=== PATIENT | male | born 1960 | race Caucasian/White ===

== ENCOUNTER → 2020-08-06 15:11 | Outpatient (BNVA) | payer OTHER, SELFPAY | PROVIDERS: Family Provider Nurse Practitioner Family; PCP Family Medicine; Visit Provider Nurse Practitioner | DX: Z20.828 Contact with and (suspected) exposure to other viral communicable diseases (principal); U07.1 COVID-19 | CPT/HCPCS: 87635 ==

== ENCOUNTER → 2021-04-20 08:16 | Outpatient (BNVA) | payer OTHER, SELFPAY | PROVIDERS: Family Provider Nurse Practitioner Family; PCP Family Medicine; Visit Provider Internal Medicine Rheumatology | DX: L40.50 Arthropathic psoriasis, unspecified (principal); L40.0 Psoriasis vulgaris; Z79.899 Other long term (current) drug therapy; Z11.59 Encounter for screening for other viral diseases; Z11.1 Encounter for screening for respiratory tuberculosis; Z71.89 Other specified counseling; Z87.891 Personal history of nicotine dependence | CPT/HCPCS: 99204 ==

== ENCOUNTER 2021-04-21 16:31 | Outpatient (CLI) | payer OTHER, SELFPAY ==
--- NOTE | 2021-04-21 16:56 | XRR_ITS ---
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 Views: 3 or more views. COMPARISON: No relevant prior studies available. FINDINGS: Bones/joints: Mild joint space narrowing of the 1st MTP. No irregular osseous erosions. Negative for fracture. Soft tissues: Normal. XR/XR foot LT min 3V* [id number] IMPRESSION: Mild joint space narrowing of the 1st MTP.
--- NOTE | 2021-04-21 16:56 | XRR_ITS ---
PROCEDURE INFORMATION: Exam: XR Right Hand Exam date and time: 04/21/2021 4:56 PM Age: 61 years old Clinical indication: Pain; Hand; Bilateral; Additional info: Z79.899 - other [facility] (current) drug therapy TECHNIQUE: Imaging protocol: XR Right hand. Views: 3 or more views. COMPARISON: No relevant prior studies available. FINDINGS: Bones/joints: No irregular osseous erosions. Negative for fracture. The joint spaces are relatively preserved. Soft tissues: Normal. XR/XR hand RT min 3V* [id number] IMPRESSION: No significant degenerative changes.
--- NOTE | 2021-04-21 16:56 | XRR_ITS ---
PROCEDURE INFORMATION: Exam: XR Right Foot Exam date and time: 04/21/2021 4:56 PM Age: 61 years old Clinical indication: Pain; Foot; Bilateral; Additional info: Z79.899 - other longterm (current) drug therapy TECHNIQUE: Imaging protocol: XR Right foot. Views: 3 or more views. COMPARISON: No relevant prior studies available. FINDINGS: Bones/joints: No regular osseous erosions. Negative for fracture. The joint spaces of the foot are preserved. Soft tissues: Normal. XR/XR foot RT min 3V* [id number] IMPRESSION: No significant degenerative changes of the right foot.
--- NOTE | 2021-04-21 16:56 | XRR_ITS ---
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 Views: 3 or more views. COMPARISON: No relevant prior studies available. FINDINGS: Bones/joints: No irregular osseous erosions. Negative for fracture. Joint spaces are relatively preserved. Soft tissues: Normal. XR/XR hand LT min 3V* [id number] IMPRESSION: No significant degenerative changes of the left hand.
--- NOTE | 2021-04-21 16:56 | XRR_ITS ---
PROCEDURE INFORMATION: Exam: XR Chest Exam date and time: 04/21/2021 4:56 PM Age: 61 years old Clinical indication: Other: Bilateral joint pain; Additional info: Z79.899 - other [facility] (current) drug therapy TECHNIQUE: Imaging protocol: XR of the chest. Views: 2 views. COMPARISON: No relevant prior studies available. FINDINGS: Lungs: Peripheral consolidation or scarring in the left upper lung. Pleural spaces: Unremarkable. No pleural effusion. No pneumothorax. Heart/Mediastinum: Unremarkable. No cardiomegaly. Bones/joints: Unremarkable. XR/XR chest 2V* [id number] IMPRESSION: Peripheral consolidation or scarring in the left upper lung.
[2021-04-21 18:10] LABS: Basophils # 0.1 10^3/uL (0.0-0.1); Basophils % 0.6 %; Eosinophils # 0.4 10^3/uL (0.0-0.8); Eosinophils % 3.2 %; Hematocrit 47.8 % (42.0-52.0); Hemoglobin 15.9 g/dL (11.7-16.6); Lymphocytes # 1.7 10^3/uL (0.8-4.8); Lymphocytes % 14.4 %; Mean Corpuscular HGB Conc 33.3 g/dL (30.0-36.0); Mean Corpuscular Hemoglobin 31.6 pg (28.0-34.0); Mean Platelet Volume 10.5 fL (7.4-10.4); Monocytes # 0.8 10^3/uL (0.2-0.9); Monocytes % 6.9 %; Neutrophils # 8.71 10^3/uL (1.8-7.7); Neutrophils % 74.6 %; Nucleated Red Blood Cells % 0 %; Platelet Count 239 10^3/cmm (130-400); Red Blood Count 5.03 10^6/uL (4.1-5.3); Red Cell Distribution Width 13.5 % (12.1-15.1); White Blood Count 11.7 10^3/uL (4.0-10.0)
[2021-04-21 20:44] LABS: 25 Hydroxy Vitamin D 54 ng/mL (30-100); Alanine Aminotransferase 27 U/L (0-41); Alkaline Phosphatase 106 IU/L (40-130); Aspartate Amino Transferase 31 U/L (0-40); C Reactive Protein 2.7 mg/L (0.0-4.9); Globulin 3.2 g/dL (1.3-4.6); Glomerular Filtration Rate 137.9 mL/min (90-130); Total Bilirubin 0.2 mg/dL (0.15-1.2); Total Protein 7.2 g/dL (6.6-8.7)
[2021-04-21 21:55] LABS: Hepatitis B Core AB, Total Non-Reactive (Nonreactive); Hepatitis B Surface Antigen Non-Reactive (Nonreactive)
[2021-04-21 22:05] LABS: Erythrocyte Sedimentation Rate 10 mm/hr (0-10)
[2021-04-21 23:47] LABS: Hepatitis C Virus Antibody Non-Reactive (Nonreactive)
[2021-04-25 13:42] LABS: Cyclic Citrullinated Peptide <16 UNITS
[2021-04-25 16:21] LABS: HLA-B27 POSITIVE (NEGATIVE)
== END 2021-04-21 16:32 | disposition home or self-care (01) ==
PROVIDERS: PCP Family Medicine; Visit Provider Internal Medicine Rheumatology
DX: L40.9 Psoriasis, unspecified (principal); M19.90 Unspecified osteoarthritis, unspecified site; M45.9 Ankylosing spondylitis of unspecified sites in spine; Z79.899 Other long term (current) drug therapy; Z11.59 Encounter for screening for other viral diseases; Z11.1 Encounter for screening for respiratory tuberculosis
CPT/HCPCS: 36415; 71046; 73130; 73630; 80076; 82306; 82565; 85025; 85651; 86140; 86480; 86704; 86803; 86812; 87340

== ENCOUNTER → 2021-05-19 11:40 | Outpatient (BNVA) | payer OTHER, SELFPAY | PROVIDERS: PCP Family Medicine; Visit Provider Surgery | DX: Z01.812 Encounter for preprocedural laboratory examination (principal); Z20.822 Contact with and (suspected) exposure to COVID-19 | CPT/HCPCS: 87635 ==

== ENCOUNTER 2021-05-24 06:29 | Day surgery (SDC) | payer OTHER, SELFPAY ==
[2021-05-19 13:12] VITALS: BMI 24.3
--- NOTE | 2021-05-24 06:43 | P.HP_ITS ---
Same Day Surgery H&P Indication for Procedure/HPI DATE OF PROCEDURE: May 24, 2021 CHIEF COMPLAINT/INDICATIONFOR SURGICAL PROCEDURE: Screening colon PREOP DIAGNOSIS: Screening colonoscopy PLANNED PROCEDRUE: Operation Date: 05/24/21 07:30 Proposed Procedures p Colonoscopy 90029 Z12.11(Not Applicable) - Thomas Brady MD 04/03/2021 This is a pleasant 61 years old gentleman referred to my practice for colonoscopy screening. Patient never had one before and denies bleeding per rectum or history of colon cancer. 05/24/2021. Patient comes today for screening colonoscopy ROS All systems have been reviewed negative all systems have been reviewed negative except as per the above or per problem list Medications/Allergies* Home Medications Medication Instructions Recorded Confirmed Type albuterol sulfate 90 mcg/actuation 2 puff INHALATION Q6H PRN 01/09/20 05/24/21 History aerosol inhaler budesonide-formoterol HFA 80 1 puff INHALATION DAILY gm 01/09/20 05/24/21 History mcg-4.5 mcg/actuation aerosol inhaler metoprolol tartrate 100 mg tablet 100 mg PO DAILY 04/03/21 05/24/21 History ibuprofen 200 mg PO PRN 05/24/21 05/24/21 History Allergies/Adverse Reactions Allergy/AdvReac Type Severity Reaction Status Date / Time No Known Allergies Allergy Verified 05/24/21 07:34 Pertinent History/Comorbid Conditions* Medical History (Updated 04/20/21 @ 10:07 by Parag Costa MD) High risk medication use Immunization counseling Plaque psoriasis Psoriatic arthritis Screen for colon cancer Family History (Updated 04/20/21 @ 09:22 by Fouzia Navarrete LPN) Lupus Lung disease Hypertension Denies family history of Rheumatoid arthritis Diabetes CAD (coronary artery disease) Psoriatic arthritis Chronic kidney disease (CKD) Psoriasis Cancer Stroke Social History Smoking and tobacco status: current every day smoker Alcohol intake: current Alcohol intake frequency: few times a month History of recent travel: No Pertinent Exam Findings alert, oriented x 3, clear to auscultation bilaterally, regular rate & rhythm and operative site marked Recommendations Surgery/Procedure today (Colonoscopy with possible biopsy ) Coding Level of Care Code Acute National Account Executive for Liset Maki
[2021-05-24 06:51] VITALS: BP 112/90; PULSE 88; RESP 18; TEMP 36.3; O2SAT 95
--- NOTE | 2021-05-24 06:52 | ANES.PREANE2 ---
Pre-Anesthetic Assessment Pre-Anesthetic Assessment: Height/Weight: Height 1.78 m Weight 77.111 kg Preop Diagnosis: Screening colonoscopy Proposed Procedure: Operation Date: 05/24/21 07:30 Proposed Procedures p Colonoscopy 93299 Z12.11(Not Applicable) - Thomas Brady MD Familial anesthetic complications: none Was Beta Molly taken within 24 hours: N/A (takes BB at night.) Last intake: 22005/22/21 meal 2030 05/23/21 liquids Social: Social History: Alcohol and Tobacco Exam: Pre-Anes Outpt Exam: alert, oriented x 3 and clear to auscultation bilaterally Airway: Submandibular: WNL Cervical ROM: WNL MP: 2 Additional comments: missing lower front tooth Pulmonary: Pulmonary: COPD CV/HEM: CV/HEM: HTN : : None reported Hepatic: Hepatic: None reported GI: GI: None reported Metabolic: Metabolic: None reported Musc/skel: Comments: psoriatic arthritis Anesthetic Plan: ASA status: 3 Anesthesia: MAC PFSH Anesthesia PFSH: Medical History (Updated 04/20/21 @ 10:07 by Parag Costa MD) High risk medication use Immunization counseling Plaque psoriasis Psoriatic arthritis Screen for colon cancer Family History (Updated 04/20/21 @ 09:22 by Fouzia Navarrete LPN) Other Hypertension Lung disease Lupus Denies family history of Rheumatoid arthritis Diabetes CAD (coronary artery disease) Psoriatic arthritis Chronic kidney disease (CKD) Psoriasis Cancer Stroke Social History (Updated 04/20/21 @ 09:23 by Fouzia Navarrete LPN) Smoking and tobacco status: current every day smoker Alcohol intake: current Alcohol intake frequency: few times a month History of recent travel: No Data Anesthesia Cardiac Studies: No Data to Display
[2021-05-24] MEDS: sodium chloride 0.9% 1,000 ML 30 ML IV (07:06)
[2021-05-24 07:52] VITALS: BP 97/76; PULSE 73; RESP 16; TEMP 36.1; O2SAT 93
[2021-05-24 08:04] VITALS: BP 96/65; PULSE 74; RESP 18; O2SAT 92
--- NOTE | 2021-05-24 08:23 | ANE.PACU2 ---
Inpatient post-anesthesia follow up: Airway intact: Yes Vital signs: Temperature 97.4 F Pulse Rate 88 Respiratory Rate 18 Blood Pressure 112/90 Pulse Oximetry 95 Oxygen Delivery Me thod Room Air Oxygen Flow Rate Fraction of Inspir ed Oxygen Hydration adequate: Yes Mental status: Baseline
== END 2021-05-24 08:52 | disposition home or self-care (01) ==
PROVIDERS: PCP Family Medicine; Visit Provider Surgery
PROC: 0DJD8ZZ Inspection of Lower Intestinal Tract, Via Natural or Artificial Opening Endoscopic (ICD-10-PCS; CPT 45330; 2021-05-24 07:30)
DX: Z12.11 Encounter for screening for malignant neoplasm of colon (principal); K57.30 Diverticulosis of large intestine without perforation or abscess without bleeding; Z82.49 Family history of ischemic heart disease and other diseases of the circulatory system; F17.210 Nicotine dependence, cigarettes, uncomplicated; J44.9 Chronic obstructive pulmonary disease, unspecified; I10 Essential (primary) hypertension
CPT/HCPCS: 45330; 96360; 96361; J2704; J7030

== ENCOUNTER 2021-06-06 09:51 | Outpatient (CLI) | payer OTHER, SELFPAY ==
--- NOTE | 2021-06-06 09:56 | FL_ITS ---
WS: [id number] Barium Enema TECHNICAL: Single contrast barium enema. FLUOROSCOPY TIME: 2.5 minutes CLINICAL INFORMATION: SIGMOID COLON STRICTURE COMPARISON: None. FINDINGS: Extensive sigmoid diverticulosis. No evidence of high-grade sigmoid stricture or obstructin g mass. Contrast normally traverses the sigmoid colon. Normal hepatic and splenic flexures. Normal il eocecal valve. No suspicious filling defects. No evidence of obstructing stricture or mass. Normal po stevacuation images. Osteopenia. Lumbar curve convex left. FL/FL barium enema [id number] IMPRESSION: 1. Sigmoid diverticulosis. No obstructing stricture. 2. Otherwise unremarkable barium enema
== END 2021-06-06 09:52 | disposition home or self-care (01) ==
LOC: RAD 09:53
PROVIDERS: PCP Family Medicine; Visit Provider Surgery
DX: K56.699 Other intestinal obstruction unspecified as to partial versus complete obstruction (principal); K57.30 Diverticulosis of large intestine without perforation or abscess without bleeding
CPT/HCPCS: 74270

== ENCOUNTER 2021-12-29 14:44 | Outpatient (CLI) | payer OTHER, SELFPAY ==
[2021-12-29 14:59] LABS: Basophils # 0.1 10^3/uL (0.0-0.1); Basophils % 0.7 %; Eosinophils # 0.3 10^3/uL (0.0-0.8); Eosinophils % 2.9 %; Hematocrit 44.3 % (42.0-52.0); Lymphocytes # 1.9 10^3/uL (0.8-4.8); Lymphocytes % 17.7 %; Mean Corpuscular HGB Conc 33.9 g/dL (30.0-36.0); Mean Corpuscular Hemoglobin 32.5 pg (28.0-34.0); Mean Corpuscular Volume 96.1 fl (80-94); Mean Platelet Volume 10.3 fL (7.4-10.4); Monocytes % 8.9 %; Neutrophils # 7.42 10^3/uL (1.8-7.7); Neutrophils % 69.4 %; Nucleated Red Blood Cells % 0 %; Platelet Count 235 10^3/cmm (130-400); Red Blood Count 4.61 10^6/uL (4.1-5.3); White Blood Count 10.7 10^3/uL (4.0-10.0)
[2021-12-29 15:24] LABS: Alanine Aminotransferase 20 U/L (0-41); Albumin Level 4.2 g/dL (3.5-5.2); Alkaline Phosphatase 98 IU/L (40-130); Aspartate Amino Transferase 23 U/L (0-40); Globulin 3.1 g/dL (1.3-4.6); Glomerular Filtration Rate 137.9 mL/min (90-130); Total Bilirubin 0.4 mg/dL (0.15-1.2); Total Protein 7.3 g/dL (6.6-8.7)
== END 2021-12-29 14:45 | disposition home or self-care (01) ==
PROVIDERS: PCP Family Medicine; Visit Provider Internal Medicine Rheumatology
DX: M19.90 Unspecified osteoarthritis, unspecified site (principal); Z79.899 Other long term (current) drug therapy; L40.50 Arthropathic psoriasis, unspecified; L40.0 Psoriasis vulgaris
CPT/HCPCS: 80076; 82565; 85025; 86140

== ENCOUNTER → 2023-04-09 15:30 | Outpatient (BNVA) | payer OTHER, SELFPAY | PROVIDERS: PCP Family Medicine; Visit Provider Internal Medicine Rheumatology | DX: Z79.899 Other long term (current) drug therapy (principal); L40.50 Arthropathic psoriasis, unspecified | CPT/HCPCS: 36415; 80076; 82565; 85025; 85651; 86140 ==

== ENCOUNTER → 2023-08-29 13:07 | Outpatient (BNVA) | payer OTHER, SELFPAY | PROVIDERS: PCP Family Medicine; Visit Provider Internal Medicine Rheumatology | DX: Z79.899 Other long term (current) drug therapy (principal); L40.50 Arthropathic psoriasis, unspecified; L40.0 Psoriasis vulgaris; Z71.89 Other specified counseling | CPT/HCPCS: 99214 ==

== ENCOUNTER 2023-10-02 13:57 | Outpatient (CLI) | payer OTHER, SELFPAY ==
--- NOTE | 2023-10-02 14:07 | MR_ITS ---
WS: [id number] MRI CERVICAL SPINE NONCONTRAST TECHNIQUE: Sagittal T1, T2 and STIR imaging. Axial T2, gradient, and fiesta imaging. CLINICAL INFORMATION: CERVICAL PAIN FOLLOW UP TO XRAY COMPARISON: None. FINDINGS: Straightening of the normal cervical lordosis. Moderate spondylotic changes. Disc osteophyte complexe s worse at C4-C5 C5-C6 and C6-C7. This is worse at C4-C5 and C5-C6 with indentation and flattening of the cervical cord with severe central canal stenosis. Myelomalacia in the cervical cord at C4-C6 C2-C3: No significant disc bulging. Mild LEFT facet arthropathy. Moderate LEFT and no significant RIG HT foraminal narrowing. Spinal canal is patent. C3-C4: Disc osteophyte complex with endplate ridging. Severe LEFT and moderate RIGHT bony foraminal n arrowing. Uncovertebral joint hypertrophy. C4-C5: Disc osteophyte complex with indentation and flattening of the cervical cord. Severe central c anal stenosis with severe bilateral bony foraminal narrowing. Moderate facet arthropathy. Uncovertebr al joint hypertrophy. C5-C6: Severe central canal stenosis due to disc osteophyte complex with endplate ridging. Flattening of the cervical cord. Cervical canal measures approximately 5.1 mm at this level. Moderate facet art hropathy. Severe bilateral bony foraminal narrowing. C6-C7: Disc osteophyte complex with endplate ridging. Mild central canal stenosis. Severe LEFT and mo derate RIGHT bony foraminal narrowing. Mild to moderate central canal stenosis with slight indentatio n on the cervical cord. C7-T1: No significant disc bulging. Spinal canal and foramen are patent. Visualized brain stem structures: Normal. Prevertebral soft tissues: Normal. IMPRESSION: 1. Straightening of the normal cervical lordosis with moderate spondylitic changes. 2. Severe central canal stenosis at C4-C5 and C5-C6 due to disc osteophyte protrusions with slight f lattening and indentation of the cervical cord. Chronic appearing myelomalacia in the cervical cord a t C4-C6. 3. Mild to moderate central canal stenosis C6-7. 4. Severe bilateral bony foraminal narrowing C4-C5 and C5-C6 with moderate facet arthropathy and unc overtebral joint hypertrophy. 5. Severe LEFT C3-C4 and LEFT C6-C7 bony foraminal narrowing. Recommend spine surgery consultation.
== END 2023-10-02 13:58 | disposition home or self-care (01) ==
LOC: RAD 13:58
PROVIDERS: PCP Family Medicine; Visit Provider Family Medicine
DX: M47.812 Spondylosis without myelopathy or radiculopathy, cervical region (principal); M48.02 Spinal stenosis, cervical region; M50.221 Other cervical disc displacement at C4-C5 level; M25.78 Osteophyte, vertebrae
CPT/HCPCS: 72141

== ENCOUNTER 2023-10-09 11:29 | Outpatient (CLI) | payer OTHER, SELFPAY ==
--- NOTE | 2023-10-09 11:37 | MR_ITS ---
WS: [id number] MRI LUMBAR SPINE NONCONTRAST HISTORY: LUMBAR PAIN, fall 2 weeks ago. COMPARISON: None available. TECHNIQUE: Sagittal and axial multisequence imaging is submitted. Advanced cervical degenerative disc disease and spondylosis. Reversal of the normal cervical lordosis . Anterior wedging of T8 with a small amount of increased T2 signal. Increase in the lumbar lordosis. L4 anterolisthesis by 6.7 mm. Less than 2 mm anterolisthesis of L5. Disc spaces are narrowed and desiccated. No acute fractures. There is a small amount of edema within the pedicles of L5. Conus terminates normally at L1-2 disc level. L1-L2: Mild annular disc bulging and osteophytic ridging. Asymmetric disc bulging to the LEFT. Modera te LEFT and mild RIGHT foraminal stenosis. L2-L3: Marked annular disc bulging with osteophytic ridging. Marked facet joint arthritis and ligamen dalia flavum hypertrophy. Disc bulging encroaches upon the ventral thecal sac. There may be a component of a central disc protrusion. Disc encroaches into the subarticular recesses contacting the traversi ng L3 nerve roots. Effacement of ventral CSF. Moderate central with bilateral subarticular recess and foraminal stenosis. L3-L4: Diffuse annular disc bulging with ligamentum flavum and facet arthritis. Bilateral subarticula r recess disc encroachment and mild to moderate bilateral foraminal stenosis. L4-L5: Diffuse annular disc bulging with severe facet joint arthritis and ligamentum flavum hypertrop hy. There is fluid in the facet joints with mild widening of the facet joints. Osteophytic ridging. S evere central and bilateral subarticular recess encroachment with at least moderate bilateral foramin al stenosis. There is significant encroachment upon the traversing L5 nerve roots. L5-S1: Mild annular disc bulging with a LEFT foraminal disc protrusion. Very mild encroachment upon t he S1 nerve roots but no high-grade stenosis. Moderate to severe facet joint arthritis. Paravertebral soft tissues are normal. IMPRESSION: 1. Advanced facet joint arthritis throughout the lumbar spine. 2. Grade 1 anterolisthesis of L4. 3. T8 mild anterior wedging with edema. Consistent with an acute fracture. No retropulsion. 4. L4-5: Severe central, bilateral subarticular recess encroachment with moderate bilateral foramina l stenosis. Significant encroachment upon the traversing L5 nerve roots. Severe facet arthritis. 5. L3-4: Bilateral subarticular recess encroachment with mild to moderate bilateral foraminal stenos is. 6. L2-3: Moderate central with bilateral subarticular recess and foraminal stenosis. Marked facet mague int arthropathy. 7. L1-2: Moderate LEFT and mild RIGHT foraminal stenosis. 8. Fluid in the facet joints of L4-5 with widening. Suggesting a component of instability. 9. There is additional marrow edema in the pedicles of L5. 10. Advanced cervical spondylosis.
== END 2023-10-09 11:30 | disposition home or self-care (01) ==
LOC: RAD 11:29
PROVIDERS: PCP Family Medicine; Visit Provider Family Medicine
DX: M47.817 Spondylosis without myelopathy or radiculopathy, lumbosacral region (principal); M48.061 Spinal stenosis, lumbar region without neurogenic claudication
CPT/HCPCS: 72148

== ENCOUNTER 2023-12-20 11:15 | Outpatient (CLI) | payer OTHER, SELFPAY ==
[2023-12-20 11:35] LABS: Basophils # 0.1 10^3/uL (0.0-0.1); Basophils % 0.9 %; Eosinophils # 0.4 10^3/uL (0.0-0.8); Eosinophils % 3.7 %; Lymphocytes # 0.9 10^3/uL (0.8-4.8); Lymphocytes % 8.2 %; Mean Corpuscular HGB Conc 34.1 g/dL (30-55); Mean Corpuscular Volume 96.9 fl (82-101); Mean Platelet Volume 9.8 fL (7.4-10.4); Monocytes # 0.6 10^3/uL (0.2-0.9); Monocytes % 5.8 %; Neutrophils # 8.81 10^3/uL (1.8-7.7); Nucleated Red Blood Cells % 0 %; Platelet Count 223 10^3/cmm (157-399); Red Blood Count 4.54 10^6/uL (3.85-5.65); White Blood Count 10.87 10^3/uL (3.29-11.43)
[2023-12-20 11:56] LABS: Alanine Aminotransferase 25 U/L (0-41); Alkaline Phosphatase 96 U/L (40-130); Aspartate Amino Transferase 23 U/L (0-40); C Reactive Protein 4.1 mg/L (0.0-4.9); Globulin 2.8 g/dL (1.3-4.6); Total Bilirubin 0.4 mg/dL (0.15-1.2); Total Protein 6.8 g/dL (6.6-8.7)
== END 2023-12-20 11:16 | disposition home or self-care (01) ==
LOC: LAB 11:16
PROVIDERS: PCP Family Medicine; Visit Provider Internal Medicine Rheumatology
DX: L40.50 Arthropathic psoriasis, unspecified (principal); Z79.899 Other long term (current) drug therapy
CPT/HCPCS: 36415; 80076; 82565; 85025; 86140

== ENCOUNTER 2024-01-20 10:56 | Emergency (ER) | payer OTHER, BC, SELFPAY ==
[2024-01-20 11:43] VITALS: BP 139/99; PULSE 94; RESP 18; TEMP 36.8; O2SAT 96; BMI 25.8
--- NOTE | 2024-01-20 13:08 | XRR_ITS ---
PROCEDURE INFORMATION: Exam: XR Right Ankle Exam date and time: 01/20/2024 1:13 PM Age: 63 years old Clinical indication: Right; Patient HX: Chronic ankle pain TECHNIQUE: Imaging protocol: Radiologic exam of the right ankle. Views: 3 or more views. COMPARISON: CR XR foot RT min 3V* [id number] 04/21/2021 5:13 PM FINDINGS: Bones/joints: Moderate calcaneal spurring.. No fracture or dislocation. Soft tissues: Normal. XR/XR ankle RT min 3V* [id number] IMPRESSION: No acute findings.
--- NOTE | 2024-01-20 13:23 | PC.PHAR ---
PT IS [facility] FOR MED LIST 01/20/24 1:24PM
--- NOTE | 2024-01-20 13:33 | US_ITS ---
WS: [id number] ULTRASOUND SOFT TISSUES RIGHT ankle HISTORY: Left Achilles,? Abscess COMPARISON: Radiograph 01/20/2024 TECHNIQUE: 2-D and color Doppler imaging is submitted. Images presented by ultrasound are labeled medial RIGHT ankle. There is an area of heterogeneous soft tissue thickening measuring 3.5 x 1.3 cm. Predominantly solid echogenicity but there is a small amount of fluid adjacent. There is mild peripheral increased vascul arity. This is a very nonspecific appearance. This has the appearance of a ruptured or severe tendino aby of the Achilles tendon although the location as labeled does not support Achilles tendon. This could represent an injury to the posterior tibial tendon if clinically the location supports the post erior tibial tendon. Less likely abscess. There is a small amount overlying soft tissue thickening. US/US soft tissue/extremity [id number] IMPRESSION: Soft tissue heterogeneous mass with a few cystic /fluid components in the media l ankle. Images are labeled medial ankle. I suspect this could be an injury to the Achilles tendon with either severe tendinopathy or tendon rupture. The loca tion labeled medial ankle does not support Achilles tendon. Additional etiologi es to consider is injury to the posterior tibial tendon. Recommend follow-up MR I ankle. This can be done on a nonurgent basis. Less likely abscess unless the clinical history supports a phlegmon.
--- NOTE | 2024-01-20 13:33 | ED_ITS ---
HPI - Extremity Problem 2 General: Chief complaint: Extremity Problem,Nontraumatic Stated complaint: absecc & ankle pain Time Seen by Provider: 01/20/24 13:07 Source: patient Mode of arrival: ambulatory History of Present Illness: 63-year-old male presents emergency room complaining of ankle pain it has been ongoing since May 2023 he is never sought any treatment for it he says that other issues: There were taken priorities for worse over the last week. Patient is not diabetic he is currently on Augmentin for a left lower tooth infection involving the first and second molars. He has not had any chest pain or shortness of breath no swelling of the leg. He does have a palpable nodule along the Achilles tendon. MD Complaint: extremity pain Onset (ago): month(s) (8) Pain Consistency: intermittent Location: left Quality: aching Radiation: proximal Relieving factors: rest Exacerbating factors: range of motion, weight bearing, walking and palpation Associated symptoms: Deny arthralgias, chest pain, fever(s), myalgias, rash or short of breath Review of Systems 2 Const: Denies: fever(s) Card: Denies: chest pain Resp: Denies: dyspnea GI: Denies: abdominal pain : Denies: dysuria, urinary frequency or urinary urgency Musc: Denies: neck pain or back pain Skin/Breast: Denies: rash PFSH ED 2 PFSH: Medical History History of COPD Immunization counseling High risk medication use Plaque psoriasis Psoriatic arthritis Screen for colon cancer Family History Other Hypertension Lung disease Lupus Denies family history of Rheumatoid arthritis Diabetes CAD (coronary artery disease) Psoriatic arthritis Chronic kidney disease (CKD) Psoriasis Cancer Stroke Social History Alcohol intake: current Alcohol intake frequency: few times a month Substance/Drug Use: never Physical Exam 2 Const: GENERAL APPEARANCE: cooperative and comfortable O RIENTATION/CONSCIOUSNESS: Yes awake, Yes oriented to person, Yes oriented to place and Yes oriented to time HENMT: COMMON NORMALS: normocephalic, atraumatic and hearing grossly normal bilaterally HEAD & SCALP: normocephalic and atraumatic Resp: COMMON NORMALS: normal respiratory effort, No retractions, No use of accessory muscles and clear to auscultation bilaterally AUSCULTATION: clear to auscultation bilaterally Cardio: COMMON NORMALS: regular rate, regular rhythm and No murmurs present (Cardio) RATE: regular rate RHYTHM: regular rhythm GI: COMMON NORMALS: Soft to palpation and No hepatosplenomegaly present A USCULTATION: Yes normoactive bowel sounds PALPATION: Yes Soft to palpation, No Tenderness to palpation present (GI), No Guarding due to palpation present (GI) and Yes No hepatosplenomegaly present Extremity: OTHER: Palpable Achilles tendon nodule approximately 3 to 4 inches proximal from the insertion on the calcaneus. Is not red and inflamed somewhat boggy edematous feel to it. No fluctuant area no calf tenderness pain with attempts at plantarflexion decreased plantarflexion strength due to pain neurovascularly otherwise intact Neuro: SENSORIUM/ORIENTATION: Yes oriented to person, Yes oriented to place and Yes oriented to time Skin: COMMON NORMALS: no rashes or lesions noted GENERAL SKIN EXAM: no rashes or lesions noted Course 2 Vital Signs: Vital signs: Vital Signs Temperature 98.3 F 01/20/24 11:43 Pulse Rate 94 01/20/24 11:43 Respiratory Rate 18 01/20/24 11:43 Blood Pressure 139/99 01/20/24 11:43 Pulse Oximetry 96 01/20/24 11:43 Oxygen Delivery Me thod Room Air 01/20/24 11:43 MDM - Extremity (Nontraumatic) Medical Decision Making Suspect patient may have partially torn as he has a lot of scar tissue and even some cystic development as it healed. Ultrasound report reviewed evidently it was not labeled as an Achilles tendon but reviewed and discussed Dr. Faria we did ultrasound the Achilles tendon. I did discuss with Dr. Locke he will order MRI if he feels it is appropriate will refer the patient to his office put him on light duty in a posterior splint and crutches Lab Data 01/20/24 13:36 01/20/24 13:36 Radiology Impressions Ankle X-Ray 01/20/24 13:08 IMPRESSION: No acute findings. Soft Tissue Ultrasound 01/20/24 13:33 IMPRESSION: Soft tissue heterogeneous mass with a few cystic /fluid components in the medial ankle. Images are labeled medial ankle. I suspect this could be an injury to the Achilles tendon with either severe tendinopathy or tendon rupture. The location labeled medial ankle does not support Achilles tendon. Additional etiologies to consider is injury to the posterior tibial tendon. Recommend follow-up MRI ankle. This can be done on a nonurgent basis. Less likely abscess unless the clinical history supports a phlegmon. Laboratory Results WBC 8.43 10^3/uL (3.29-11.43) 01/20/24 13:36 RBC 4.54 10^6/uL (3.85-5.65) 01/20/24 13:36 Hgb 14.70 g/dL (11.27-16.99) 01/20/24 13:36 Hct 44.1 % (37-53) 01/20/24 13:36 MCV 97.1 fl (82-101) 01/20/24 13:36 MCH 32.4 pg (27-33) 01/20/24 13:36 MCHC 33.3 g/dL (30-55) 01/20/24 13:36 RDW 12.8 % (12.1-15.1) 01/20/24 13:36 Plt Count 251 10^3/cmm (157-399) 01/20/24 13:36 MPV 10.2 fL (7.4-10.4) 01/20/24 13:36 Neut % (Auto) 65.6 % 01/20/24 13:36 Lymph % (Auto) 18.7 % 01/20/24 13:36 [place] % (Auto) 12.5 % 01/20/24 13:36 Eos % (Auto) 2.1 % 01/20/24 13:36 Baso % (Auto) 0.7 % 01/20/24 13:36 Neut # (Auto) 5.53 10^3/uL (1.8-7.7) 01/20/24 13:36 Lymph # (Auto) 1.6 10^3/uL (0.8-4.8) 01/20/24 13:36 [place] # (Auto) 1.1 10^3/uL (0.2-0.9) H 01/20/24 13:36 Eos # (Auto) 0.2 10^3/uL (0.0-0.8) 01/20/24 13:36 Baso # (Auto) 0.1 10^3/uL (0.0-0.1) 01/20/24 13:36 Nucleated RBC % (auto) 0 % 01/20/24 13:36 Nucleated RBCs # 0.0 /100WBC 01/20/24 13:36 Sodium 133 mmol/L (136-145) L 01/20/24 13:36 Potassium 3.9 mmol/L (3.5-5.1) 01/20/24 13:36 Chloride 96 mmol/L (98-107) L 01/20/24 13:36 Carbon Dioxide 26 mmol/L (22-29) 01/20/24 13:36 Anion Gap 14.9 (5-19) 01/20/24 13:36 BUN 11 mg/dL (8-23) 01/20/24 13:36 Creatinine 0.5 mg/dL (0.7-1.2) L 01/20/24 13:36 GFR Calculation 169.0 mL/min (90-130) H 01/20/24 13:36 Glucose 85 mg/dL (65-115) 01/20/24 13:36 Calculated Osmolality 275 mOsm/kg (285-295) L 01/20/24 13:36 Calcium 9.5 mg/dL (8.5-10.5) 01/20/24 13:36 Total Bilirubin 0.2 mg/dL (0.15-1.2) 01/20/24 13:36 AST 26 U/L (0-40) 01/20/24 13:36 ALT 30 U/L (0-41) 01/20/24 13:36 Alkaline Phosphatase 118 U/L (40-130) 01/20/24 13:36 Total Protein 7.6 g/dL (6.6-8.7) 01/20/24 13:36 Albumin 3.6 g/dL (3.5-5.2) 01/20/24 13:36 Globulin 4.0 g/dL (1.3-4.6) 01/20/24 13:36 All radiology interpretation(s) finalized by discharge Discharge Plan Discharge Patient Disposition: Home Clinical Impression: Achilles tendon mass Condition: Stable Prescriptions: No Action albuterol sulfate [ProAir HFA] 90 mcg/actuation HFA aerosol inhaler 2 puff INHALATION Q6H PRN (Reason: Shortness Of Breath) Xeljanz 5 mg tablet 5 mg PO BID Qty: 60 3RF amoxicillin-pot clavulanate 875-125 mg tablet 1 tab PO BID 10 Days Qty: 20 0RF prednisone 20 mg tablet See Rx Instructions PO .COMPLEX PRN (Reason: joint pain flare) Qty: 30 1RF Rx Instructions: take 2 tab daily for 7 days as needed for arthritis flare PO PRN; albuterol sulfate 2.5 mg /3 mL (0.083 %) Solution For Nebulization 2.5 mg INHALATION Q6H sildenafil 100 mg Tablet 100 mg PO DAILY PRN (Reason: Erectile Dysfunction) Rx Instructions: administer 30 minutes to 4 hours before activity ibuprofen 200 mg Tablet 200 mg PO Q6H PRN (Reason: Pain) ixekizumab 80 mg/mL Auto-Injector 80 mg SUBCUT .[id number] Flonase Allergy Relief 50 mcg/actuation spray,suspension 2 spray intranasal DAILY PRN (Reason: nasal congestion) Rx Instructions: administer into each nostril Discharge Orders: Discharge ED (Routine); Ordered 01/20/24 Ordered By: Gregory Michelle Referrals: Kady Rowan MD [Primary Care Provider] - Discharge Diet: Usual diet Discharge Activity: Limit activity as instructed and Use walker/crutches as instructed Patient Instructions: Opioid Safety, Pain Management Activity Restrictions/Additional Instructions: Thank you for choosing [facility] for your healthcare needs today. It is very important that you follow up as instructed or that you return to the Emergency Department should you have concerns or if your condition changes or worsens in any way. You were seen today for ankle pain. On exam you have a palpable nodule on your Achilles tendon confirmed by ultrasound. Will refer you to podiatry for further evaluation and potential definitive treatment. Recommend light duty you should not climb ladders or steps. Additionally you should rest this foot by having it in a splint and using crutches. Stand Alone Forms: Work/School Release Coding Level of Care Code ED Professional Nursing Tutor for Liset Maki
[2024-01-20 13:55] LABS: Basophils # 0.1 10^3/uL (0.0-0.1); Basophils % 0.7 %; Eosinophils # 0.2 10^3/uL (0.0-0.8); Eosinophils % 2.1 %; Hematocrit 44.1 % (37-53); Lymphocytes # 1.6 10^3/uL (0.8-4.8); Lymphocytes % 18.7 %; Mean Corpuscular HGB Conc 33.3 g/dL (30-55); Mean Corpuscular Hemoglobin 32.4 pg (27-33); Mean Corpuscular Volume 97.1 fl (82-101); Mean Platelet Volume 10.2 fL (7.4-10.4); Monocytes # 1.1 10^3/uL (0.2-0.9); Monocytes % 12.5 %; Neutrophils # 5.53 10^3/uL (1.8-7.7); Neutrophils % 65.6 %; Nucleated Red Blood Cells % 0 %; Platelet Count 251 10^3/cmm (157-399); Red Blood Count 4.54 10^6/uL (3.85-5.65); Red Cell Distribution Width 12.8 % (12.1-15.1); White Blood Count 8.43 10^3/uL (3.29-11.43)
[2024-01-20 14:11] LABS: Alanine Aminotransferase 30 U/L (0-41); Albumin Level 3.6 g/dL (3.5-5.2); Alkaline Phosphatase 118 U/L (40-130); Anion Gap 14.9 (5-19); Aspartate Amino Transferase 26 U/L (0-40); Blood Urea Nitrogen 11 mg/dL (8-23); Calcium 9.5 mg/dL (8.5-10.5); Carbon Dioxide 26 mmol/L (22-29); Chloride 96 mmol/L (98-107); Creatinine Clr Calc Pharmacy 167.7846; Glucose 85 mg/dL (65-115); Osmolality Calculated 275 mOsm/kg (285-295); Potassium 3.9 mmol/L (3.5-5.1); Sodium 133 mmol/L (136-145); Total Bilirubin 0.2 mg/dL (0.15-1.2); Total Protein 7.6 g/dL (6.6-8.7)
--- NOTE | 2024-01-20 14:39 | DCPLANNER ---
messaged podiatry for er f/u
[2024-01-20 15:04] LABS: Lactic Sepsis W/Reflex 1.2 mmol/L (0.5-2.2)
== END 2024-01-20 15:24 | disposition home or self-care (01) ==
PROVIDERS: Emergency Provider Family Medicine; PCP Family Medicine
DX: M67.873 Other specified disorders of tendon, right ankle and foot (principal); J44.9 Chronic obstructive pulmonary disease, unspecified
CPT/HCPCS: 29505; 36415; 73610; 76882; 80053; 83605; 85025; 87040; 99284

== ENCOUNTER 2024-01-23 14:52 | Outpatient (CLI) | payer OTHER, BC, SELFPAY | END 2024-01-23 14:53 | disposition home or self-care (01) | LOC: SPT 14:53 | PROVIDERS: PCP Family Medicine; Visit Provider Podiatrist Foot & Ankle Surgery | DX: Z46.89 Encounter for fitting and adjustment of other specified devices (principal); M25.571 Pain in right ankle and joints of right foot; S86.011D Strain of right Achilles tendon, subsequent encounter; X58.XXXD Exposure to other specified factors, subsequent encounter | CPT/HCPCS: 97760; L4361 ==

== ENCOUNTER 2024-01-29 07:37 | Outpatient (CLI) | payer OTHER, SELFPAY ==
--- NOTE | 2024-01-29 08:00 | MR_ITS ---
WS: [id number] MRI RIGHT ANKLE WITHOUT CONTRAST. COMPARISON: Ultrasound 01/20/2024 and radiographs 01/20/2024 Multiplanar, multisequence imaging is performed without contrast. Markedly abnormal appearance of the Achilles tendon. There is a fluid gap extending over a length of 2.2 cm. Retraction of the tendon stumps. The distal tendon is small caliber and tendinopathic. The pr oximal tendon is thickened and heterogeneous. Low signal nodule within the fluid surrounding the tend on tear measuring 5 mm. This is probably a loose body or part of the retracted tendon. Approximately 2.9 cm of the more proximal retracted tendon is thickened and heterogeneous. Small amount of edema in the Kager fat pad. There is a small amount of marrow edema in the posterior calcaneus near the insertion site of the racheal caneus. No additional marrow edema. Peroneus tendons, flexor hallucis longus, flexor digitorum longus and the posterior tibialis tendon are normal. There is a small amount of fluid along the posterior t ibialis tendon but it appears external to the tendon. Anterior tendons are negative. No ligament inju ry. No osteochondral defects. MR/MR ankle RT wo con* [id number] IMPRESSION: 1. Complete tear of the Achilles tendon with fluid gap extending over a length of 2.2 cm. The distal tendon to the insertion site is small. Very small calibe r distal tendon. 2. The proximal retracted Achilles tendon is thickened with increased fluid si gnal and tendinopathy. 3. Small amount of fluid in Kager fat pad. There is a small 5 mm loose body wh ich may be part of the retracted tendon.
== END 2024-01-29 07:38 | disposition home or self-care (01) ==
PROVIDERS: PCP Family Medicine; Visit Provider Podiatrist Foot & Ankle Surgery
DX: S86.011A Strain of right Achilles tendon, initial encounter (principal); X58.XXXA Exposure to other specified factors, initial encounter
CPT/HCPCS: 73721

== ENCOUNTER → 2024-02-10 08:01 | Outpatient (BNVA) | payer OTHER, SELFPAY | PROVIDERS: PCP Family Medicine; Visit Provider Podiatrist Foot & Ankle Surgery | DX: S86.011A Strain of right Achilles tendon, initial encounter (principal); X58.XXXA Exposure to other specified factors, initial encounter | CPT/HCPCS: 99214 ==

== ENCOUNTER 2024-02-11 07:46 | Outpatient (CLI) | payer OTHER, SELFPAY ==
--- NOTE | 2024-02-11 07:48 | PETR_ITS ---
PROCEDURE INFORMATION: Exam: PET/CT Skull Base to Mid-thigh Exam date and time: 02/11/2024 8:36 AM Age: 63 years old Clinical indication: Abnormal findings; Abnormal CT LABS AND CLINICAL REPORTS: Glucose: 89 mg/dl Treatment strategy for malignancy (PET staging): Initial Staging (PI) TECHNIQUE: Imaging protocol: Following at least four-hour fasting and following the injection of radiopharmaceutical, low dose CT images were obtained. Then, PET images were obtained. Attenuation corrected images were constructed using the CT scan. Fused images of PET and CT were reviewed. The standardized uptake values (SUV) reported below are maximum values within a region of interest, expressed in gm/ml. Exam includes orbital meatal line to mid-thigh. Radiopharmaceutical: 13.35 mCi F-18 FDG (Fluorodeoxyglucose), IV. Time of imaging post radiopharmaceutical administration: 1 hour Injection site: Right antecubital COMPARISON: 1. MR cervical spin wo con* [id number] 10/02/2023 2:16 PM 2. CR XR chest 2V* [id number] 04/21/2021 5:13 PM FINDINGS: Brain: Visualized brain has normal physiologic uptake. Pharynx: No abnormal uptake. Larynx: No abnormal uptake. Lungs, pleura and trachea: Upper lung predominant emphysematous change. Lateral left upper lobe cavitary pleural-parenchymal masslike area measures 4.8 x 2.8 cm on axial image 76 of series 3 and shows low-level FDG uptake at the superior aspect with SUV max of 3.2 on axial image 75 of series 3. Non FDG avid 1.8 cm nodular component at the anteroinferior aspect. Consolidative opacity in this area on comparison chest radiographs from April 2021. Possible mild irregular signal abnormality in this area on cervical spine MRI coronal coal equipment operator image. Multiple bilateral calcified granulomata. Heart: Normal physiologic uptake. Coronary arteries: Mild coronary artery calcification. Mediastinal space: No abnormal uptake. Liver: No abnormal uptake. Gallbladder and biliary ducts: No abnormal uptake. Pancreas: No abnormal uptake. Spleen: No abnormal uptake. Adrenal glands: No abnormal uptake. Kidneys and ureters: Normal physiologic uptake. Stomach and bowel: No abnormal uptake. Colonic diverticulosis without findings of diverticulitis. Reproductive: Enlarged prostate measures 4.7 cm in transverse dimension. Moderate midline FDG uptake favored to represent urine. Vasculature: No abnormal uptake. Moderate systemic atherosclerotic calcification without aortic aneurysm. Lymph nodes: No abnormal uptake. No lymphadenopathy in the head, neck, chest, abdomen, pelvis, and extremities. Skeleton: No abnormal uptake in the visualized axial and appendicular skeleton. Chronic ununited fracture deformity at the posterior right 9th rib. Degenerative changes along the spine with grade 1 anterolisthesis of L4 on L5. Mild chronic superior compression deformities of the T7 and T8 vertebral bodies. Soft tissues: No abnormal uptake in the visualized head, neck, chest, abdomen, pelvis, and extremities. Bilateral gynecomastia. Small fat containing umbilical hernia. Small fat containing left inguinal hernia versus cord lipoma. Other findings: Somewhat focal moderate FDG uptake at the left muscles of mastication with mild asymmetric thickening about the mandibular ramus, which remains intact. There is also asymmetric low-level FDG uptake at the posterior left mandibular alveolar ridge as well as about the left submandibular gland. PET/PET skull to thigh INIT [id number] IMPRESSION: 1. Lateral left upper lobe cavitary pleural-parenchymal lesion with low-level of uptake at the superior aspect and non FDG avid nodular component at the anteroinferior aspect. This may represent chronic fibrocavitary lesion given comparison imaging findings. Infectious, inflammatory or neoplastic process thought less likely but not entirely excluded. Comparison with any available prior chest CT imaging would be helpful. Chest CT follow-up recommended. 2. Somewhat focal moderate FDG uptake at the left muscles of mastication with mild asymmetric thickening about the mandibular ramus may be related to low-level FDG uptake at the posterior left mandibular alveolar ridge as well as about the left submandibular gland. Findings may be infectious or inflammatory. Recommend contrast-enhanced soft tissue neck CT. 3. Additional chronic and incidental findings as above, to include atherosclerosis, colonic diverticulosis, and prostatomegaly.
== END 2024-02-11 07:47 | disposition home or self-care (01) ==
PROVIDERS: PCP Family Medicine; Visit Provider Family Medicine
DX: R91.1 Solitary pulmonary nodule (principal); J43.9 Emphysema, unspecified; J84.10 Pulmonary fibrosis, unspecified; K57.90 Diverticulosis of intestine, part unspecified, without perforation or abscess without bleeding; N40.0 Benign prostatic hyperplasia without lower urinary tract symptoms; M95.4 Acquired deformity of chest and rib; M43.8X4 Other specified deforming dorsopathies, thoracic region; M43.16 Spondylolisthesis, lumbar region; N62 Hypertrophy of breast; K42.9 Umbilical hernia without obstruction or gangrene; K40.90 Unilateral inguinal hernia, without obstruction or gangrene, not specified as recurrent
CPT/HCPCS: 78815; A9552

== ENCOUNTER 2024-02-25 05:14 | Emergency (ER) | payer OTHER, BC, SELFPAY ==
[2024-02-25] VITALS (9 sets, daily range): BP systolic 163–192; BP diastolic 89–126; PULSE 76–95; RESP 16–18; TEMP 36.7; O2SAT 94–95; BMI 27.2
--- NOTE | 2024-02-25 05:23 | CTR_ITS ---
PROCEDURE INFORMATION: Exam: CT Maxillofacial With Contrast Exam date and time: 02/25/2024 5:39 AM Age: 63 years old Clinical indication: Mass, lump, or swelling; Mouth; Additional info: Left jaw swelling, concern for abscess TECHNIQUE: Imaging protocol: Computed tomography of the face with contrast. Radiation optimization: All CT scans at this facility use at least one of these dose optimization techniques: automated exposure control; mA and/or kV adjustment per patient size (includes targeted exams where dose is matched to clinical indication); or iterative reconstruction. Contrast material: OMNI 350; Contrast volume: 100 ml; Contrast route: INTRAVENOUS (IV); COMPARISON: PT PET skull to thigh INIT [id number] 02/11/2024 8:36 AM RADIATION DOSE METRICS: Total DLP (mGy-cm): 664.18 FINDINGS: Orbital cavities: Orbits are normal. Globes are unremarkable. Paranasal sinuses: Normal. No air-fluid levels. Bones: No blastic or lytic bony lesions are identified. No definite bone destruction or periostitis is noted involving the mandible. Soft tissues: There is a rim enhancing fluid collection surrounding primarily the left mandibular ramus. The collection measures a proximally 4 cm AP dimension by 4.4 cm transverse dimension by 5.5 cm craniocaudad dimension. The collection extends adjacent to the left temporomandibular joint but does not definitely involve the temporomandibular joint. There is edema with inflammatory fat stranding involving the subcutaneous tissues superficial to the mandible on the left. CT/CT facial bones w con [id number] IMPRESSION: 1. Rim enhancing fluid collection surrounding primarily the left mandibular ramus most compatible with an abscess. No definite osteomyelitis is identified on this CT exam.
--- NOTE | 2024-02-25 05:24 | ED_ITS ---
Documented by User: Deya Moreno MD 02/25/24 05:26 HPI - Dental/Oral 2 General: Chief complaint: Dental/Oral Stated complaint: Left side mouth swelling Time Seen by Provider: 02/25/24 05:26 History of Present Illness: Patient had a tooth pulled about a month ago and had developed an infection afterwards. He completed a round of antibiotics and then started having swelling again over the last couple of days. He took his first dose of antibiotics yesterday. They restarted him on amoxicillin he says. Overnight he developed a great deal of swelling over his left cheek and jaw. Says he cannot close his mouth at this point and so swollen. No difficulty swallowing. No feelings of throat swelling. No known fevers. He says he did take hydrocodone for pain this morning. Review of Systems 2 Narrative: Constitutional symptoms: Negative except as documented in HPI. Skin symptoms: Negative except as documented in HPI. Eye symptoms: Negative except as documented in HPI. ENMT symptoms: Negative except as documented in HPI. Respiratory symptoms: Negative except as documented in HPI. Cardiovascular symptoms: Negative except as documented in HPI. Gastrointestinal symptoms: Negative except as documented in HPI. Genitourinary symptoms: Negative except as documented in HPI. Musculoskeletal symptoms: Negative except as documented in HPI. Neurologic symptoms: Negative except as documented in HPI. Psychiatric symptoms: Negative except as documented in HPI. Endocrine symptoms: Negative except as documented in HPI. PFSH ED 2 PFSH: Medical History History of COPD Immunization counseling High risk medication use Plaque psoriasis Psoriatic arthritis Screen for colon cancer Family History Other Hypertension Lung disease Lupus Denies family history of Rheumatoid arthritis Diabetes CAD (coronary artery disease) Psoriatic arthritis Chronic kidney disease (CKD) Psoriasis Cancer Stroke Social History Smoking and tobacco/nicotine status: current every day tobacco/nicotine user Alcohol intake: current Alcohol intake frequency: few times a month Substance/Drug Use: never Physical Exam 2 Narrative: EXAM NARRATIVE: General: Alert, no acute distress. Skin: warm and dry Head: Normocephalic Neck: Trachea midline Eye: Extraocular movements are intact. Ears, nose, mouth and throat: Tacky oral mucosa, patient does have a great deal of swelling over his left cheek and swelling inside of his mouth. Respiratory: Respirations are non-labored Musculoskeletal: Normal ROM Neurological: Alert and oriented, No focal neurological deficit observed. Psychiatric: Cooperative, appropriate mood & affect. Course 2 Vital Signs: Vital signs: Vital Signs Temperature 98.1 F 02/25/24 05:25 Pulse Rate 95 02/25/24 10:55 Respiratory Rate 16 02/25/24 08:42 Blood Pressure 163/102 02/25/24 10:55 Pulse Oximetry 94 02/25/24 10:55 Oxygen Delivery Me thod Room Air 02/25/24 09:30 MDM - Dental/Oral Medical Decision Making Appears to have a dental abscess, but given the size of this I have ordered a CT scan to evaluate further. 900 mg IV clinda were given. 10 mg IV Decadron. He has not been able to eat or drink months and appears a bit dehydrated so a liter of fluid is being given as well. Patient care transitioned to Dr. Michelle at shift change. Lab Data 02/25/24 05:30 02/25/24 05:[address] 02/25/24 05:23 IMPRESSION: 1. Rim enhancing fluid collection surrounding primarily the left mandibular ramus most compatible with an abscess. No definite osteomyelitis is identified on this CT exam. Laboratory Results WBC 19.32 10^3/uL (3.29-11.43) H 02/25/24 05:30 RBC 4.68 10^6/uL (3.85-5.65) 02/25/24 05:30 Hgb 14.60 g/dL (11.27-16.99) 02/25/24 05:30 Hct 44.2 % (37-53) 02/25/24 05:30 MCV 94.4 fl (82-101) 02/25/24 05:30 MCH 31.2 pg (27-33) 02/25/24 05:30 MCHC 33.0 g/dL (30-55) 02/25/24 05:30 RDW 13.9 % (12.1-15.1) 02/25/24 05:30 Plt Count 335 10^3/cmm (157-399) 02/25/24 05:30 MPV 10.3 fL (7.4-10.4) 02/25/24 05:30 Neut % (Auto) 85.8 % 02/25/24 05:30 Lymph % (Auto) 6.5 % 02/25/24 05:30 Rabun % (Auto) 6.4 % 02/25/24 05:30 Eos % (Auto) 0.6 % 02/25/24 05:30 Baso % (Auto) 0.3 % 02/25/24 05:30 Neut # (Auto) 16.57 10^3/uL (1.8-7.7) H 02/25/24 05:30 Lymph # (Auto) 1.3 10^3/uL (0.8-4.8) 02/25/24 05:30 Rabun # (Auto) 1.2 10^3/uL (0.2-0.9) H 02/25/24 05:30 Eos # (Auto) 0.1 10^3/uL (0.0-0.8) 02/25/24 05:30 Baso # (Auto) 0.1 10^3/uL (0.0-0.1) 02/25/24 05:30 Nucleated RBC % (auto) 0 % 02/25/24 05:30 Nucleated RBCs # 0.0 /100WBC 02/25/24 05:30 Sodium 132 mmol/L (136-145) L 02/25/24 05:30 Potassium 4.0 mmol/L (3.5-5.1) 02/25/24 05:30 Chloride 91 mmol/L (98-107) L 02/25/24 05:30 Carbon Dioxide 27 mmol/L (22-29) 02/25/24 05:30 Anion Gap 18.0 (5-19) 02/25/24 05:30 BUN 11 mg/dL (8-23) 02/25/24 05:30 Creatinine 0.5 mg/dL (0.7-1.2) L 02/25/24 05:30 GFR Calculation 169.0 mL/min (90-130) H 02/25/24 05:30 Glucose 97 mg/dL (65-115) 02/25/24 05:30 Calculated Osmolality 273 mOsm/kg (285-295) L 02/25/24 05:30 Lactic Acid 1.1 mmol/L (0.5-2.2) 02/25/24 05:30 Calcium 10.3 mg/dL (8.5-10.5) 02/25/24 05:30 Total Bilirubin 0.8 mg/dL (0.15-1.2) 02/25/24 05:30 AST 29 U/L (0-40) 02/25/24 05:30 ALT 31 U/L (0-41) 02/25/24 05:30 Alkaline Phosphatase 113 U/L (40-130) 02/25/24 05:30 Total Protein 8.4 g/dL (6.6-8.7) 02/25/24 05:30 Albumin 4.1 g/dL (3.5-5.2) 02/25/24 05:30 Globulin 4.3 g/dL (1.3-4.6) 02/25/24 05:30 Discharge Plan Discharge Patient Disposition: Xfer Short-Term Hosp Clinical Impression: Dental abscess, Psoriatic arthritis, High risk medication use Referrals: Kady Rowan MD [Primary Care Provider] - Sign Out Sign Out Data: Patient Sign Out occurred on 02/25/24 at 06:43. Patient's care was discussed, and care was transferred from Deya Moreno MD to Gregory Michelle DO. 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 [employer] Documented by User: Gregory Michelle DO 02/25/24 12:44 HPI - Dental/Oral 2 General: Chief complaint: Dental/Oral Stated complaint: Left side mouth swelling Time Seen by Provider: 02/25/24 05:26 PFSH ED 2 PFSH: Medical History History of COPD Immunization counseling High risk medication use Plaque psoriasis Psoriatic arthritis Screen for colon cancer Family History Other Hypertension Lung disease Lupus Denies family history of Rheumatoid arthritis Diabetes CAD (coronary artery disease) Psoriatic arthritis Chronic kidney disease (CKD) Psoriasis Cancer Stroke Social History Smoking and tobacco/nicotine status: current every day tobacco/nicotine user Alcohol intake: current Alcohol intake frequency: few times a month Substance/Drug Use: never Course 2 Vital Signs: Vital signs: Vital Signs Temperature 98.1 F 02/25/24 05:25 Pulse Rate 95 02/25/24 10:55 Respiratory Rate 16 02/25/24 08:42 Blood Pressure 163/102 02/25/24 10:55 Pulse Oximetry 94 02/25/24 10:55 Oxygen Delivery Me thod Room Air 02/25/24 09:30 MDM - Dental/Oral Medical Decision Making Appears to have a dental abscess, but given the size of this I have ordered a CT scan to evaluate further. 900 mg IV clinda were given. 10 mg IV Decadron. He has not been able to eat or drink months and appears a bit dehydrated so a liter of fluid is being given as well. Patient care transitioned to Dr. Michelle at shift change. Care assumed at change of shift patient does have a fairly sizable abscess immediately adjacent to the left TMJ with a significant leukocytosis. He was recently on steroids but quit about 5 to 6 days ago. He is also on Xeljanz which is for his psoriatic arthritis which will cause immune suppression. Discussed with maxillary facial surgery they concur with her assessment recommend that he be transferred for incision and drainage. Patient will be transferred ER to ER via [facility]. Differential Diagnosis Likely dental abscess Medical Records I reviewed the patient's medical records. Lab Data I reviewed the patient's lab results. 02/25/24 05:30 02/25/24 05:[address] 02/25/24 05:23 IMPRESSION: 1. Rim enhancing fluid collection surrounding primarily the left mandibular ramus most compatible with an abscess. No definite osteomyelitis is identified on this CT exam. Laboratory Results WBC 19.32 10^3/uL (3.29-11.43) H 02/25/24 05:30 RBC 4.68 10^6/uL (3.85-5.65) 02/25/24 05:30 Hgb 14.60 g/dL (11.27-16.99) 02/25/24 05:30 Hct 44.2 % (37-53) 02/25/24 05:30 MCV 94.4 fl (82-101) 02/25/24 05:30 MCH 31.2 pg (27-33) 02/25/24 05:30 MCHC 33.0 g/dL (30-55) 02/25/24 05:30 RDW 13.9 % (12.1-15.1) 02/25/24 05:30 Plt Count 335 10^3/cmm (157-399) 02/25/24 05:30 MPV 10.3 fL (7.4-10.4) 02/25/24 05:30 Neut % (Auto) 85.8 % 02/25/24 05:30 Lymph % (Auto) 6.5 % 02/25/24 05:30 Rabun % (Auto) 6.4 % 02/25/24 05:30 Eos % (Auto) 0.6 % 02/25/24 05:30 Baso % (Auto) 0.3 % 02/25/24 05:30 Neut # (Auto) 16.57 10^3/uL (1.8-7.7) H 02/25/24 05:30 Lymph # (Auto) 1.3 10^3/uL (0.8-4.8) 02/25/24 05:30 Rabun # (Auto) 1.2 10^3/uL (0.2-0.9) H 02/25/24 05:30 Eos # (Auto) 0.1 10^3/uL (0.0-0.8) 02/25/24 05:30 Baso # (Auto) 0.1 10^3/uL (0.0-0.1) 02/25/24 05:30 Nucleated RBC % (auto) 0 % 02/25/24 05:30 Nucleated RBCs # 0.0 /100WBC 02/25/24 05:30 Sodium 132 mmol/L (136-145) L 02/25/24 05:30 Potassium 4.0 mmol/L (3.5-5.1) 02/25/24 05:30 Chloride 91 mmol/L (98-107) L 02/25/24 05:30 Carbon Dioxide 27 mmol/L (22-29) 02/25/24 05:30 Anion Gap 18.0 (5-19) 02/25/24 05:30 BUN 11 mg/dL (8-23) 02/25/24 05:30 Creatinine 0.5 mg/dL (0.7-1.2) L 02/25/24 05:30 GFR Calculation 169.0 mL/min (90-130) H 02/25/24 05:30 Glucose 97 mg/dL (65-115) 02/25/24 05:30 Calculated Osmolality 273 mOsm/kg (285-295) L 02/25/24 05:30 Lactic Acid 1.1 mmol/L (0.5-2.2) 02/25/24 05:30 Calcium 10.3 mg/dL (8.5-10.5) 02/25/24 05:30 Total Bilirubin 0.8 mg/dL (0.15-1.2) 02/25/24 05:30 AST 29 U/L (0-40) 02/25/24 05:30 ALT 31 U/L (0-41) 02/25/24 05:30 Alkaline Phosphatase 113 U/L (40-130) 02/25/24 05:30 Total Protein 8.4 g/dL (6.6-8.7) 02/25/24 05:30 Albumin 4.1 g/dL (3.5-5.2) 02/25/24 05:30 Globulin 4.3 g/dL (1.3-4.6) 02/25/24 05:30 All radiology interpretation(s) finalized by discharge Discharge Plan Discharge Patient Disposition: Xfer Short-Term Hosp Clinical Impression: Dental abscess, Psoriatic arthritis, High risk medication use Referrals: Kady Rowan MD [Primary Care Provider] - Sign Out Sign Out Data: Patient Sign Out occurred on 02/25/24 at 06:43. Patient's care was discussed, and care was transferred from Deya Moreno MD to Gregory Michelle DO. 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
[2024-02-25] MEDS: sodium chloride 0.9% 1,000 ML 999 ML IV (05:33)
[2024-02-25] MEDS: clindamycin 900 MG/50 ML PREMIX 100 MG IV (05:34)
[2024-02-25] MEDS: dexamethasone 10 mg/mL INJ IVP (05:35)
[2024-02-25] MEDS: iohexol 350 mg/mL 500 mL Btl (per mL) IV (05:41)
--- NOTE | 2024-02-25 07:23 | PC.PHAR ---
PT IS [facility] FOR MED LIST 02/25/24 7:23AM
[2024-02-25] MEDS: hyDRALAzine 20 mg/mL INJ 1 mL 10 MG IVP (08:35)
[2024-02-25 08:47] LABS: Basophils # 0.1 10^3/uL (0.0-0.1); Basophils % 0.3 %; Eosinophils # 0.1 10^3/uL (0.0-0.8); Eosinophils % 0.6 %; Hematocrit 44.2 % (37-53); Lymphocytes # 1.3 10^3/uL (0.8-4.8); Lymphocytes % 6.5 %; Mean Corpuscular Hemoglobin 31.2 pg (27-33); Mean Corpuscular Volume 94.4 fl (82-101); Mean Platelet Volume 10.3 fL (7.4-10.4); Monocytes # 1.2 10^3/uL (0.2-0.9); Monocytes % 6.4 %; Neutrophils # 16.57 10^3/uL (1.8-7.7); Neutrophils % 85.8 %; Nucleated Red Blood Cells % 0 %; Platelet Count 335 10^3/cmm (157-399); Red Blood Count 4.68 10^6/uL (3.85-5.65); Red Cell Distribution Width 13.9 % (12.1-15.1); White Blood Count 19.32 10^3/uL (3.29-11.43)
[2024-02-25 09:01] LABS: Alanine Aminotransferase 31 U/L (0-41); Albumin Level 4.1 g/dL (3.5-5.2); Alkaline Phosphatase 113 U/L (40-130); Aspartate Amino Transferase 29 U/L (0-40); Blood Urea Nitrogen 11 mg/dL (8-23); Calcium 10.3 mg/dL (8.5-10.5); Carbon Dioxide 27 mmol/L (22-29); Chloride 91 mmol/L (98-107); Globulin 4.3 g/dL (1.3-4.6); Glucose 97 mg/dL (65-115); Osmolality Calculated 273 mOsm/kg (285-295); Sodium 132 mmol/L (136-145); Total Bilirubin 0.8 mg/dL (0.15-1.2); Total Protein 8.4 g/dL (6.6-8.7)
[2024-02-25 09:02] LABS: Creatinine Clr Calc Pharmacy 171.7662; Lactic Sepsis W/Reflex 1.1 mmol/L (0.5-2.2)
--- NOTE | 2024-02-25 09:50 | PC.PHAR ---
PT STATES ONLY TOOK ANITBIOTIC (DOXYCYCLINE HYCLATE 100MG) AND NORCO 7.5-325 TODAY.
[2024-02-25] MEDS: nicotine 14 mg Patch 1 PATCH TRANSDERMA (10:02)
--- NOTE | 2024-02-25 10:14 | PC.NURSE ---
Pt report called to Dora Dutta, report given via phone to Ramona Padilla RN who verbalized understanding and denies questions.
== END 2024-02-25 10:55 | disposition short-term general hospital (02) ==
PROVIDERS: Emergency Provider Family Medicine; PCP Family Medicine
DX: K04.7 Periapical abscess without sinus (principal); L40.50 Arthropathic psoriasis, unspecified; J44.9 Chronic obstructive pulmonary disease, unspecified; F17.210 Nicotine dependence, cigarettes, uncomplicated; Z79.899 Other long term (current) drug therapy
CPT/HCPCS: 36415; 70487; 80053; 83605; 85025; 87040; 96365; 96375; 99285; J0360; J1100; J3490; J7030; Q9967

== ENCOUNTER → 2024-04-23 13:14 | Outpatient (BNVA) | payer OTHER, BC, SELFPAY | PROVIDERS: PCP Family Medicine; Visit Provider Internal Medicine Rheumatology | DX: L40.50 Arthropathic psoriasis, unspecified (principal); Z79.899 Other long term (current) drug therapy; L40.0 Psoriasis vulgaris; Z71.89 Other specified counseling | CPT/HCPCS: 99214 ==

== ENCOUNTER → 2024-08-03 12:45 | Outpatient (BNVA) | payer OTHER, SELFPAY | PROVIDERS: PCP Family Medicine; Visit Provider Podiatrist Foot & Ankle Surgery | DX: S86.011A Strain of right Achilles tendon, initial encounter (principal); X58.XXXA Exposure to other specified factors, initial encounter | CPT/HCPCS: 99213 ==

== ENCOUNTER 2024-08-07 15:42 | Outpatient (CLI) | payer OTHER, SELFPAY ==
--- NOTE | 2024-08-07 16:00 | MR_ITS ---
WS: [id number] MRI RIGHT ANKLE WITHOUT CONTRAST. COMPARISON: 01/29/2024 Multiplanar, multisequence imaging is performed without contrast. History: Prior Achilles tendon tear. Abnormal appearance to the Achilles tendon. Prior complete tear was identified on 01/29/2024. Achilles tendon demonstrates interval partial healing. There is moderate heterogeneity within the Achilles te ndon extending over a length of at least 8.4 cm. The fluid gap has partially healed. There is a long segment of fluid in the central portion of the tendon along with intermediate signal extending above and below the interstitial fluid. The distal Achilles tendon is slightly atrophied. The Achilles tend on is not retracted. Loss of the normal concave surface of the anterior tendon. The tendon measures 1 1.7 mm. Mild volume loss of Kager's fat pad. No marrow edema or fractures. Mild plantar fasciitis. There is a small amount of edema in the posteri or calcaneus. There is also an enthesopathy at the distal Achilles tendon insertion site. Peroneal tendons, posterior tibialis, flexor hallucis longus and flexor digitorum longus and the exte nsor tendons are appropriate. Normal syndesmosis. There is a small amount of fluid adjacent to the an terior talofibular ligament consistent with a partial tear. This tear was not present on the prior MR I. MR/MR ankle RT wo con* [id number] IMPRESSION: 1. Chronic Achilles tendon tear with mucoid degeneration and chronic atrophy. 2. Overall the previously described large tear with fluid gap has healed but t here is still a central fluid component which may be a partial retear or persis tent interstitial tear. Intrasubstance tear suspected along with mucoid degener ation. 3. Distal Achilles tendon enthesopathy. 4. New partial tear of ATFL.
== END 2024-08-07 15:43 | disposition home or self-care (01) ==
LOC: RAD 15:43
PROVIDERS: PCP Family Medicine; Visit Provider Podiatrist Foot & Ankle Surgery
DX: S86.011A Strain of right Achilles tendon, initial encounter (principal); M76.891 Other specified enthesopathies of right lower limb, excluding foot; S93.431A Sprain of tibiofibular ligament of right ankle, initial encounter; X58.XXXA Exposure to other specified factors, initial encounter
CPT/HCPCS: 73721

== ENCOUNTER 2024-08-31 09:44 | Outpatient (CLI) | payer OTHER, SELFPAY ==
[2024-08-31 10:03] LABS: Basophils # 0.1 10^3/uL (0.0-0.1); Basophils % 0.6 %; Eosinophils % 0.3 %; Hematocrit 50.9 % (37-53); Lymphocytes # 0.6 10^3/uL (0.8-4.8); Lymphocytes % 5.5 %; Mean Corpuscular Hemoglobin 33.3 pg (27-33); Mean Corpuscular Volume 98.1 fl (82-101); Mean Platelet Volume 9.6 fL (7.4-10.4); Monocytes # 0.3 10^3/uL (0.2-0.9); Neutrophils # 9.67 10^3/uL (1.8-7.7); Neutrophils % 90.2 %; Nucleated Red Blood Cells % 0 %; Platelet Count 266 10^3/cmm (157-399); Red Blood Count 5.19 10^6/uL (3.85-5.65); Red Cell Distribution Width 13.6 % (12.1-15.1); White Blood Count 10.71 10^3/uL (3.29-11.43)
[2024-08-31 10:05] LABS: Erythrocyte Sedimentation Rate 18 mm/hr (0-10)
[2024-08-31 10:25] LABS: Alanine Aminotransferase 23 U/L (0-41); Albumin Level 4.2 g/dL (3.5-5.2); Alkaline Phosphatase 118 U/L (40-130); Aspartate Amino Transferase 21 U/L (0-40); C Reactive Protein 3.2 mg/L (0.0-4.9); Globulin 3.3 g/dL (1.3-4.6); Glomerular Filtration Rate 168.5 mL/min (90-130); Total Bilirubin 0.2 mg/dL (0.15-1.2); Total Protein 7.5 g/dL (6.6-8.7)
== END 2024-08-31 09:45 | disposition home or self-care (01) ==
LOC: LAB 09:46
PROVIDERS: Absent Provider Internal Medicine Rheumatology; PCP Family Medicine; Visit Provider Nurse Practitioner Family
DX: Z79.899 Other long term (current) drug therapy (principal); L40.50 Arthropathic psoriasis, unspecified; R97.20 Elevated prostate specific antigen [PSA]
CPT/HCPCS: 36415; 80076; 82565; 84153; 85025; 85651; 86140

== ENCOUNTER → 2024-09-10 12:53 | Outpatient (BNVA) | payer OTHER, SELFPAY | PROVIDERS: PCP Family Medicine; Visit Provider Internal Medicine Rheumatology | DX: L40.50 Arthropathic psoriasis, unspecified (principal); L40.0 Psoriasis vulgaris; Z79.899 Other long term (current) drug therapy; Z71.89 Other specified counseling | CPT/HCPCS: 99215 ==

== ENCOUNTER → 2024-09-16 06:59 | Outpatient (BNVA) | payer OTHER, SELFPAY | PROVIDERS: PCP Family Medicine; Visit Provider Podiatrist Foot & Ankle Surgery | DX: S86.011D Strain of right Achilles tendon, subsequent encounter; M67.88 Other specified disorders of synovium and tendon, other site; X58.XXXD Exposure to other specified factors, subsequent encounter | CPT/HCPCS: 99213 ==

== ENCOUNTER 2024-10-13 08:23 | Outpatient (RCR) | payer OTHER, SELFPAY | END 2024-10-16 23:59 | disposition home or self-care (01) | LOC: SPT 08:23 | PROVIDERS: Visit Provider Podiatrist Foot & Ankle Surgery | DX: S86.001D Unspecified injury of right Achilles tendon, subsequent encounter (principal); X58.XXXD Exposure to other specified factors, subsequent encounter | CPT/HCPCS: 97161 ==

== ENCOUNTER 2024-10-17 06:00 | Outpatient (RCR) | payer OTHER, SELFPAY | END 2024-11-16 23:59 | disposition home or self-care (01) | LOC: SPT 06:00 | PROVIDERS: Visit Provider Podiatrist Foot & Ankle Surgery | DX: S86.001D Unspecified injury of right Achilles tendon, subsequent encounter (principal); X58.XXXD Exposure to other specified factors, subsequent encounter | CPT/HCPCS: 97110 ==

== ENCOUNTER → 2024-11-09 06:48 | Outpatient (BNVA) | payer OTHER, SELFPAY | PROVIDERS: Visit Provider Podiatrist Foot & Ankle Surgery | DX: M67.88 Other specified disorders of synovium and tendon, other site (principal); S86.011D Strain of right Achilles tendon, subsequent encounter; M72.2 Plantar fascial fibromatosis; X58.XXXD Exposure to other specified factors, subsequent encounter | CPT/HCPCS: 99213 ==

== ENCOUNTER 2024-11-17 05:00 | Outpatient (RCR) | payer OTHER, SELFPAY | END 2024-12-16 23:59 | disposition home or self-care (01) | LOC: SPT 05:00 | PROVIDERS: Visit Provider Podiatrist Foot & Ankle Surgery | DX: S86.001S Unspecified injury of right Achilles tendon, sequela (principal); X58.XXXS Exposure to other specified factors, sequela | CPT/HCPCS: 97110; 97112 ==

== ENCOUNTER 2024-12-17 05:00 | Outpatient (RCR) | payer OTHER, SELFPAY | END 2025-01-16 23:59 | disposition home or self-care (01) | LOC: SPT 05:00 | PROVIDERS: Visit Provider Podiatrist Foot & Ankle Surgery | DX: S86.001S Unspecified injury of right Achilles tendon, sequela (principal); X58.XXXS Exposure to other specified factors, sequela | CPT/HCPCS: 97110; 97112 ==

== ENCOUNTER → 2025-01-04 06:49 | Outpatient (BNVA) | payer OTHER, SELFPAY | PROVIDERS: PCP Family Medicine; Visit Provider Podiatrist Foot & Ankle Surgery | DX: M67.88 Other specified disorders of synovium and tendon, other site (principal); S86.011D Strain of right Achilles tendon, subsequent encounter; M72.2 Plantar fascial fibromatosis; X58.XXXD Exposure to other specified factors, subsequent encounter | CPT/HCPCS: 99213 ==

== ENCOUNTER → 2025-01-12 09:44 | Outpatient (BNVA) | payer OTHER, SELFPAY | PROVIDERS: PCP Family Medicine; Visit Provider Internal Medicine Rheumatology | DX: L40.50 Arthropathic psoriasis, unspecified (principal); L40.0 Psoriasis vulgaris; Z79.899 Other long term (current) drug therapy; Z71.89 Other specified counseling | CPT/HCPCS: 36415; 80076; 82565; 85025; 85651; 86140; 99214 ==

== ENCOUNTER 2025-01-17 05:00 | Outpatient (RCR) | payer OTHER, SELFPAY | END 2025-02-01 08:00 | disposition home or self-care (01) | LOC: SPT 05:00 | PROVIDERS: PCP Family Medicine; Visit Provider Podiatrist Foot & Ankle Surgery | DX: S86.001S Unspecified injury of right Achilles tendon, sequela (principal); X58.XXXS Exposure to other specified factors, sequela | CPT/HCPCS: 97110 ==

== ENCOUNTER 2025-03-04 08:10 | Outpatient (CLI) | payer OTHER, SELFPAY ==
--- NOTE | 2025-03-04 08:15 | CT_ITS ---
WS: [id number] CT chest w con* [id number] REASON FOR EXAM: DEVELOPING R LOWER LUNG MASS IV CONTRAST ADMINISTERED: 100 mL of Omnipaque 350. TECHNIQUE: Following the intravenous administration of contrast, multiple axial images were obtained with coronal and sagittal reconstructions. TOTAL EXAM DLP: 439.[address] scans at [facility] use at least one of these dose optimization techniques: automated exposure control; mA and/or kV adjustment per patient size (includes targeted exams where dose is matched to clinical indication); or iterative reconstruction. FINDINGS: No significant abnormality of the aorta or pulmonary arteries. There is calcified plaque in both right and left coronary arteries. There are presumed old chronic reactive nodes in the middle mediastinum. No hilar mass or adenopathy. There are multiple calcified nodules bilaterally, 3 to 5 mm in diameter. There is extensive central lobar emphysema and significant subpleural bullous disease in the lung apices. There is relatively symmetric irregular pleural thickening over both lung apices. In the anterior/lateral left upper lung, there is a complex bullous formation with thickened septations. Within this complex collection there is a small moderately thick walled locule which contains fluid. There is thickening of the adjacent pleura. Mild chronic appearing compression deformities T7-T9. Moderate degenerative spondylosis in the mid and lower thoracic spine. Old nonunion posterior right rib fracture. CT/CT chest w con* [id number] IMPRESSION: Correlated with the CT PET scan, complex bullous formation in the left upper hafsa ng with low-grade infection. Described above. Multiple calcified pulmonary nodules. Benign. Significant central lobar emphysema.
[2025-03-04] MEDS: iohexol 350 mg/mL 500 mL Btl (per mL) IV (08:46)
== END 2025-03-04 08:11 | disposition home or self-care (01) ==
LOC: RAD 08:11
PROVIDERS: PCP Family Medicine; Visit Provider Family Medicine
DX: J43.2 Centrilobular emphysema (principal); R91.8 Other nonspecific abnormal finding of lung field
CPT/HCPCS: 71260

== ENCOUNTER → 2025-05-18 12:42 | Outpatient (BNVA) | payer OTHER, SELFPAY | PROVIDERS: PCP Family Medicine; Visit Provider Internal Medicine Rheumatology | DX: L40.50 Arthropathic psoriasis, unspecified (principal); L40.0 Psoriasis vulgaris; Z79.899 Other long term (current) drug therapy; Z71.85 Encounter for immunization safety counseling | CPT/HCPCS: 36415; 80076; 82306; 82565; 85025; 85651; 86140; 86480; 99214 ==

== ENCOUNTER 2025-07-30 09:45 | Outpatient (CLI) | payer OTHER, SELFPAY ==
[2025-07-30 12:05] LABS: Prostate Specific Antigen 4.780 ng/mL (0-4)
== END 2025-07-30 09:46 | disposition home or self-care (01) ==
PROVIDERS: PCP Family Medicine; Visit Provider Nurse Practitioner Family
DX: R97.20 Elevated prostate specific antigen [PSA] (principal)
CPT/HCPCS: 36415; 84153